=== PATIENT | male | born 1990 | race Two or more races ===

== ENCOUNTER 2025-05-23 06:25 | Emergency (ER) | payer SELFPAY ==
[2025-05-23 06:26] VITALS: PULSE 94; RESP 16; O2SAT 98
--- NOTE | 2025-05-23 06:40 | EDNOTE_ITS ---
ED Animal Bite RME/HPI General Chief Complaint: Animal Bite Stated Complaint: DOG BITES Time Seen by Provider: 05/23/25 06:42 Arrival date/time: 05/23/25 06:25 Limitations: no limitations RME / HPI RME / HPI narrative: DR. MORRISON MAIN ED EVALUATION: 34 year old male presents to the Emergency Department [facility] with complaint of dog bites at about 5 Am today per patient. Per EMS, history is a little unclear and patient will not elaborate. EMS picked up the patient at home and there was no dog in sight. Per patient, is was not his dog and the dog came out of nowhere. His last tetanus is unknown, a long time . Patient has abrasions all over his body and a few laceration including: big right shoulder abrasion, left leg knee abrasion, and multiple abrasions of the left hand; lacerations/wounds: right base of the hand laceration, right palm old wound, small lacerations in the webs of the left hand, and left hand laceration. PMHx: Left ear deafness Social Hx: Smokes half a pack a day and uses marijuana. Related Data Previous Rx's ?Medication ?Instructions ?Recorded amoxicillin 875 mg-potassium 1 tab PO BID DOG BITE #20 tabs 05/23/25 clavulanate 125 mg tablet amoxicillin 875 mg-potassium 1 tab PO BID DOG BITES #2 0 tabs 05/23/25 clavulanate 125 mg tablet hydrocodone 5 mg-acetaminophen 325 1 tab PO TID PRN pa in #14 tabs 05/23/25 mg tablet hydrocodone 5 mg-acetaminophen 325 1 tab PO TID PRN pa in #14 tabs 05/23/25 mg tablet Allergies Allergy/AdvReac Type Severity Reaction Status Date / Time No Known Allergies Allergy Verified 05/23/25 06:50 Review of Systems Review of Systems Systems Reviewed: All systems reviewed, normal except as documented Past Medical History Past Medical History ENT: Positive History of ENT Problems (HARD OF HEARING IN RIGHT EAR) Social History SMOKING STATUS: Current some day smoker SUBSTANCE USE: marijuana ALCOHOL: Never ED Exam General Limitations: Present no limitations General appearance: Present alert and in no apparent distress Head Head exam: Present normal inspection Eye Eye exam: Present normal appearance, PERRL and EOMI ENT ENT exam: Present normal exam, normal oropharynx and mucous membranes moist Neck Neck exam: Present normal inspection, full ROM and trachea midline Chest Chest inspection: Present normal inspection and symmetric chest wall rise Respiratory Respiratory exam: Present normal lung sounds bilaterally Cardiovascular Cardiovascular exam: Present regular rate, normal rhythm and normal heart sounds Abdominal Exam Abdominal exam: Present soft and normal bowel sounds Extremities Exam Extremities exam: Present full ROM Back Exam Back exam: Present normal inspection and full ROM Neurological Exam Neurological exam: Present alert, oriented X3 and CN II-XII intact Psychiatric Psychiatric exam: Present normal affect and normal mood Skin Skin exam: Present warm, dry and normal color Other Other exam information: Multiple abrasions throughout the body but bigger on the following sites: big right shoulder abrasion measuring 8 cm, left leg knee abrasion measuring 3 cm, and multiple abrasions of the left hand. Lacerations/wounds: right base of the hand 1 cm laceration, right palm 3.5 cm old wound, small lacerations in the webs of the left hand, left hand laceration 4x3 cm. Right thumb is tender. Course Quality Measures none Orders Category Date Time Status Irrigate Wound NOW Care 05/23/25 06:46 Active TDap [Obtain Tdap Consent] X1 Care 05/23/25 06:43 Completed Wound Care NOW Care 05/23/25 06:46 Active XR hand comp BI min 3V Stat Exams 05/23/25 11:37 Completed Ketorolac Inj [Toradol Inj] Med 05/23/25 06:48 Discontinued 30 mg IVP X1 ONE Lidocaine 1% 20 ml [Xylocaine 1% 20 ML] Med 05/23/25 06:43 Discontinued 20 ml INFL X1 ONE Ondansetron Inj [Zofran Inj] Med 05/23/25 06:43 Discontinued 4 mg IVP X1 ONE Piper/Tazo Inj [Zosyn Inj] 4.5 gm Med 05/23/25 06:47 Discontinued Sodium Chloride 0.9% (Pop) [NS 0.9% mini bag] 100 ml IV X1 Sodium Cl Irrig Soln [NS Irrig] Med 05/23/25 06:43 Discontinued 500 ml IRRIG X1 ONE TET,DIP/PERT AC (Adult)-Tdap [Boostrix Adult (Tdap) Med 05/23/25 07:43 Discontinued Vacc] 0.5 ml IMI .ONCE ONE fentaNYL INJ [Sublimaze Inj] Med 05/23/25 06:43 Discontinued 100 mcg IVP X1 ONE Vital Signs Vital signs: Vital Signs Temperature 97.6 F 05/23/25 06:46 Pulse Rate 53 L 05/23/25 06:46 Respiratory Rate 16 05/23/25 06:46 Blood Pressure 130/89 H 05/23/25 06:46 PROCEDURES: Procedure Comment Lacerations Procedures Lacerations on right hand palmar aspect, total 2 lacerations: Site: hand Side : right Size (cm): 1 cm each Description: linear Depth: simple, single layer Local Anesthetic: lidocaine 2% Amount of anesthesia used (mL): 2 cc on each Pre-repair: wound explored, irrigated extensively and deep structures intact Suture size (cm): 4-0 (ethilon) Number of sutures: 1 on each Technique: simple, interrupted Lacerations on right hand dorsal aspect, total 3 lacerations: Site: hand Side : right Size (cm): 1 cm each Description: linear Depth: simple, single layer Local Anesthetic: lidocaine 2% Amount of anesthesia used (mL): 2 cc on each Pre-repair: wound explored, irrigated extensively and deep structures intact Suture size (cm): 4-0 (ethilon) Number of sutures: 1 on each Technique: simple, interrupted Lacerations on left hand dorsal aspect, total 2 lacerations: Site: hand Side : left Size (cm): 1 cm each Description: linear Depth: simple, single layer Local Anesthetic: lidocaine 2% Amount of anesthesia used (mL): 2 cc on each Pre-repair: wound explored, irrigated extensively and deep structures intact Suture size (cm): 4-0 (ethilon) Number of sutures: 1 on each Technique: simple, interrupted Lacerations on left hand palmar aspect, total 1 laceration: Site: hand Side : left Size (cm): 3 cm Description: linear Depth: simple, single layer Local Anesthetic: lidocaine 2% Amount of anesthesia used (mL): 6 cc Pre-repair: wound explored, irrigated extensively and deep structures intact Suture size (cm): 4-0 (ethilon) Number of sutures: 5 Technique: simple, interrupted Animal Bite MDM Narrative MDM Narrative:: I, Milvia York, am scribing for and in the presence of Dr. Morrison. Patient data External records reviewed:: EMS form Clinical information provided by:: patient and EMS Social determinants that could affect healthcare access:: substance use (marijuana) Patient has the following chronic illnesses:: PMHx: Left ear deafness Social Hx: Smokes half a pack a day and uses marijuana. How is presenting disease/condition affected by chronic disease/condition?: uneffected by Evaluation data The following diagnostics were reviewed and interpreted by me:: radiology exam(s) Lab and/or radiology exams considered but not ordered:: none Interpretation Summary: Procedure(s): XR hand comp BI min 3V Accession Number(s): [id number] cc: Luis Morrisno MD; Brian Katz MD; NO PRIMARY/FAMILY,PHYSICIAN~ Examination: Bilateral hands, 6 views. Technique: AP, Oblique, Lateral each hand total 6 views Date and time of exam: May 23, 2025, Global 5 hours Indications: Multiple dog bites to both hands. Findings: Air density consistent with soft tissue injury adjacent to the right fifth metacarpal No foreign body No fracture Possible air density in the soft tissue left hand between the first and second metacarpals, no fracture, no opaque foreign body Impression: No opaque foreign bodies detected Dictated By: Brian Katz MD Medications / Prescriptions Medications or Prescriptions considered but not ordered:: none Medication administrations:: Medication Administration History Discontinued Medications Diphtheria/Tetanus/Acell Pertussis (Diphth,Pertuss(Acell),Tet Vac 0.5 Ml Syr- Adult) 0.5 ml IMi .ONCE ONE Stop: 05/23/25 07:44 Last Admin: 05/23/25 07:55 Dose: 0.5 ml Documented By: Fentanyl Citrate (Fentanyl Cit Inj 50 Mcg/Ml Amp 2ml) 100 mcg IVP X1 ONE Stop: 05/23/25 06:44 Last Admin: 05/23/25 10:22 Dose: Not Given Documented By: Non-Admin Reason: Patient Refused Piperacillin Sod/Tazobactam (Sod 4.5 gm/ Sodium Chloride) 100 mls @ 200 mls/hr IV X1 ONE Stop: 05/23/25 07:16 Last Infusion: 05/23/25 07:45 Dose: Infused Documented By: Admin: 05/23/25 07:10 Dose: 200 mls/hr Documented By: Ketorolac Tromethamine (Ketorolac Inj 30 Mg/Ml Vial) 30 mg IVP X1 ONE Stop: 05/23/25 06:49 Last Admin: 05/23/25 07:10 Dose: 30 mg Documented By: JOHANNA Lidocaine HCl (Lidocaine Hcl 1% 20 Ml Vial) 20 ml INFL X1 ONE Stop: 05/23/25 06:44 Last Admin: 05/23/25 07:06 Dose: 20 ml Documented By: EDWIN Comments: MEDICATION GIVEN TO DR. MORRISON Ondansetron HCl (Ondansetron Inj 2 Mg/Ml Inj 2 Ml) 4 mg IVP X1 ONE; Protocol Stop: 05/23/25 06:44 Last Admin: 05/23/25 07:04 Dose: 4 mg Documented By: JOHANNA Sodium Chloride (Sodium Cl Irrig Soln 500 Ml Btl) 500 ml IRRIG X1 ONE Stop: 05/23/25 06:44 Last Admin: 05/23/25 07:06 Dose: 500 ml Documented By: DT Comments: IRRIGATED BILATERAL HANDS, PER DR. MORRISON. see above Consultations Consultation(s) initiated? (list below): No Diagnosis Differential diagnosis animal bite: bite by animal, cat bite and dog bite Most likely diagnosis given after review of the tests above:: Dog bite Admission Indicated Admission indicated?: not indicated Admission Request Was there a request for admission?: No Disposition Plan Disposition Plan: Discharge Discharge Attestation Discharge Attestation: The patient and all family members were given an opportunity to ask questions and understood the discharge instructions. Discharge instructions specifically effects, indications for sooner follow up or return to the emergency department, and the expected course of current diagnosis. Patient condition: Stable Discharge Plan Plan Patient Disposition: HOME (Self Care) Patient condition on transfer: Stable Prescriptions/Referrals Prescriptions/Med Rec: New amoxicillin-pot clavulanate 875-125 mg tablet 1 tab PO BID MDD 2 Qty: 20 0RF hydrocodone-acetaminophen 5-325 mg tablet 1 tab PO TID MDD 3 PRN (Reason: pain) Qty: 14 0RF amoxicillin-pot clavulanate 875-125 mg tablet 1 tab PO BID MDD 2 Qty: 20 0RF hydrocodone-acetaminophen 5-325 mg tablet 1 tab PO TID MDD 3 PRN (Reason: pain) Qty: 14 0RF Referrals: No Primary/Family,Physician [Primary Care Provider] - In 1 week Problem List Clinical Impression: Dog bite Patient/Caregiver Discharge Instructions Education Materials: ED Dog Bite Additional Instructions: Please follow-up with your primary care physician within 2-3 days. Return to the Emergency Department as needed. Print Language: Armenian Stand Alone Forms: Isa Award Info., Patient Portal Info Letter
[2025-05-23 06:44] VITALS: BMI 20.5
[2025-05-23 06:46] VITALS: BP 130/89; PULSE 53; RESP 16; TEMP 36.4
[2025-05-23] MEDS: ONDANSETRON INJ 2 MG/ML INJ 2 ML 4 MG IVP (07:04)
[2025-05-23] MEDS: SODIUM CL IRRIG SOLN 500 ML BTL IRRIG (07:06)
[2025-05-23] MEDS: LIDOCAINE HCL 1% 20 ML VIAL INFL (07:06)
[2025-05-23] MEDS: PIPER/TAZO INJ 4.5 GM in SODIUM CHLORIDE 0.9% (POP) 100 ML IV (07:10)
[2025-05-23] MEDS: KETOROLAC INJ 30 MG/ML VIAL IVP (07:10)
[2025-05-23 07:15] VITALS: BP 121/79; PULSE 65; RESP 15; TEMP 36.7; O2SAT 98
--- NOTE | 2025-05-23 07:30 | PC.NURSE ---
PT'S DOG BITE WOUNDS IRRIGATED WITH NS ON BILAT. HAND AND SOAKED IN NS THIS AM. PT ABLE TO TOLERATE FOR ABOUT 5 MINUTES AND PT REMOVED HANDS AFTER.
[2025-05-23] MEDS: DIPHTH,PERTUSS(ACELL),TET VAC 0.5 ML SYR- ADULT IMi (07:55)
[2025-05-23 10:42] VITALS: BP 126/86; PULSE 63; RESP 18; TEMP 36.9; O2SAT 99
--- NOTE | 2025-05-23 11:37 | XR_ITS ---
Examination: Bilateral hands, 6 views. Technique: AP, Oblique, Lateral each hand total 6 views Date and time of exam: May 23, 2025, Global 5 hours Indications: Multiple dog bites to both hands. Findings: Air density consistent with soft tissue injury adjacent to the right fifth metacarpal No foreign body No fracture Possible air density in the soft tissue left hand between the first and second metacarpals, no fracture, no opaque foreign body Impression: No opaque foreign bodies detected
[2025-05-23 12:01] VITALS: BP 108/84; PULSE 75; RESP 16; TEMP 36.7; O2SAT 99
== END 2025-05-23 15:44 | disposition home or self-care (01) ==
PROVIDERS: Emergency Provider Family Medicine
DX: S61.411A Laceration without foreign body of right hand, initial encounter (principal); S61.412A Laceration without foreign body of left hand, initial encounter; W54.0XXA Bitten by dog, initial encounter; Z23 Encounter for immunization
CPT/HCPCS: 12005; 73130; 90471; 90715; 96365; 96375; 99284; A4217; J1885; J2405; J2543; J3490